=== PATIENT | female | born 1940 | race Caucasian/White ===

== ENCOUNTER 2016-07-10 13:00 | Outpatient (RCR) | payer MEDICARE, OTHER ==
[~2016-07-10 13:00] MED LIST: ARICEPT 5MG PO; CALCIUM 500500 M2 PO; EPA FISH OIL1000 MG PO; FOLIC ACID0.4 MG PO; IRON TABLETS325 MG PO; MOBIC15 MG PO; MULTIVITAMIN FO1 CAP PO; NAMENDA5 MG PO; NATURAL E400 IU PO; OSTEO-BI-FLEX 21 TAB PO; PREVACID 30MG30 M1 PO; PRILOSEC 20MG20 MG PO; VITAMIN C500 MG PO; VITAMIN D32000 IU PO
== END 2016-08-25 | disposition home or self-care (01) ==
LOC: MKS.ESL.PT
DX: M25.512 Pain in left shoulder (principal)
CPT/HCPCS: G8987-GP; G8988-GP; G8989-GP

== ENCOUNTER → 2016-08-28 | Outpatient (CLI) | payer MEDICARE, OTHER | LOC: MC.RAD 13:09 | DX: Z12.31 Encounter for screening mammogram for malignant neoplasm of breast (principal) ==

== ENCOUNTER 2020-03-30 16:53 | Emergency (ER) | payer MEDICARE, OTHER ==
[~2020-03-30] VITALS: Ht 165.1 cm; Wt 100.0 kg
[2020-03-30 16:55] VITALS: TEMP 98
[2020-03-30 19:17] VITALS: BP 192/91; PULSE 77
== END 2020-03-30 19:17 | disposition home or self-care (01) ==
LOC: COL.ER 16:53
DX: S51.011A Laceration without foreign body of right elbow, initial encounter (principal); W01.0XXA Fall on same level from slipping, tripping and stumbling without subsequent striking against object, initial encounter

== ENCOUNTER → 2020-10-31 | Outpatient (CLI) | payer MEDICARE, OTHER | LOC: MC.RAD 10:30 | DX: Z12.31 Encounter for screening mammogram for malignant neoplasm of breast (principal) ==

== ENCOUNTER → 2021-12-31 | Outpatient (CLI) | payer MEDICARE, OTHER | LOC: COL.RAD 12:07 | DX: M18.11 Unilateral primary osteoarthritis of first carpometacarpal joint, right hand (principal); M85.842 Other specified disorders of bone density and structure, left hand ==

== ENCOUNTER 2023-06-05 13:09 | Outpatient (RCR) | payer MEDICARE, OTHER ==
[2023-06-05 13:22] LABS: ALBUMIN 3.3 gm/dL (3.4-4.8); BILIRUBIN,TOTAL 0.9 mg/dL (0.2-1.2); CALCIUM 9.4 mg/dL (8.4-10.2); CREATININE, serum 1.69 mg/dL (0.57-1.11); POTASSIUM 4.6 mmol/L (3.5-4.5); TOTAL PROTEIN 7.4 gm/dL (6.2-8.1)
[2023-06-05 13:24] LABS: BASO # 0.1 K/mm3 (0.0-0.2); BASO % 1.1 % (0.0-2.0); EOS # 0.1 K/mm3 (0.0-0.7); EOS % 1.4 % (0.0-4.0); GRAN # 6.7 K/mm3 (1.4-6.5); GRAN % 72.4 % (42.2-75.2); HEMATOCRIT 37.2 % (37.0-47.0); LYMPH # 1.2 K/mm3 (1.2-3.4); LYMPH % 13.1 % (20.0-51.0); MEAN CELL VOLUME 90 fl (80.0-100.0); MEAN CORPUSCULAR HEMOGLOBIN 29 pg (27-31); MEAN CORPUSCULAR HGB CONC 32 g/dl (33.0-37.0); MEAN PLATELET VOLUME 10.6 fl (7.4-10.4); MONO % 11.1 % (1.7-9.3); PLATELET COUNT 451 K/mm3 (130-400); RED BLOOD COUNT 4.15 M/mm3 (4.10-5.30); REDCELL DISTRIBUTION WIDTH-CV 14.6 % (11.5-14.5)
== END 2023-06-26 | disposition home or self-care (01) ==
LOC: ZCOL.LAB
PROVIDERS: Internal Medicine
DX: D64.9 Anemia, unspecified (principal)